=== PATIENT | male | born 1970 | race Two or more races ===

== ENCOUNTER 2022-02-08 07:57 | Emergency (ER) | payer OTHER ==
[~2022-02-08] VITALS: Ht 182.9 cm; Wt 90.7 kg
[2022-02-08] MEDS ORDERED: CAPSAICIN42.5 GM TOP (09:05)
[2022-02-08] MEDS ORDERED: ZOVIRAX800 MG PO (09:05)
== END 2022-02-08 09:15 | disposition home or self-care (01) ==
LOC: ER 07:57
DX: B02.9 Zoster without complications (principal)